=== PATIENT | female | born 1980 | race Caucasian/White ===

== ENCOUNTER 2016-08-03 00:44 | Emergency (ER) | payer OTHER ==
--- NOTE | 2016-08-03 00:53 | ER Document Report ---
ED Medical Screen (RME) - General Stated Complaint: ABDOMINAL PAIN Notes: 36-year-old female, chief complaint of left upper abdominal pain with an episode of vomiting tonight, history of gastritis and PUD, states it feels the same. Given 4 mg zofran by EMS. Denies blood in vomit, reports normal stools. Had EGD in the past. Physical Exam - Abdominal Tenderness: Tender - LUQ tender, difficult to exam based on patient cooperation
[2016-08-03] MEDS ORDERED: ONDANSETRON 4 MG TAB.RAPDIS PO ONE (00:57)
[2016-08-03] MEDS ORDERED: FAMOTIDINE 20 MG TABLET PO ONE (00:57)
[2016-08-03] MEDS ORDERED: SUCRALFATE 1 GM TABLET PO ONE (00:57)
[2016-08-03] MEDS ORDERED: MORPHINE SULFATE 10 MG/ML INJ IV ONE (02:32)
[2016-08-03] MEDS ORDERED: NORMAL SALINE 1000 ML 1,000 ML IV ONE ×2 (02:32→02:52)
[2016-08-03] MEDS ORDERED: PANTOPRAZOLE SODIUM 40 MG VIAL IV ONE (02:33)
--- NOTE | 2016-08-03 02:33 | ER Document Report ---
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 She denies hiatal hernia. She has had a cholecystectomy, . She states she has vomited once since being seen in triage by me. TRAVEL OUTSIDE OF THE [place] IN LAST 30 DAYS: No - Related Data Allergies/Adverse Reactions: Penicillins Allergy (Verified 08/03/16 01:00) Past Medical History - General Information source: Patient - Social History Smoking Status: Current Every Day Smoker Chew tobacco use (# tins/day): No Frequency of alcohol use: None Drug Abuse: Marijuana Lives with: Alone Family History: Reviewed & Not Pertinent Patient has suicidal ideation: No Patient has homicidal ideation: No Endocrine Medical History: Reports: Hx Hypothyroidism Renal/ Medical History: Denies: Hx Peritoneal Dialysis Past Surgical History: Reports: Hx Section, Hx Cholecystectomy - Immunizations Hx Diphtheria, Pertussis, Tetanus Vaccination: Yes Review of Systems - Review of Systems Constitutional: No symptoms reported EENT: No symptoms reported Cardiovascular: No symptoms reported Respiratory: No symptoms reported Gastrointestinal: See HPI Genitourinary: No symptoms reported Female Genitourinary: No symptoms reported Musculoskeletal: No symptoms reported Skin: No symptoms reported Hematologic/Lymphatic: No symptoms reported Neurological/Psychological: No symptoms reported Physical Exam - Vital signs Vitals: Temp Pulse Resp BP Pulse Ox 98.4 F 74 20 126/90 H 98 08/03/16 00:54 08/03/16 00:54 08/03/16 00:54 08/03/16 00:54 08/03/16 00:54 Interpretation: Normal - General General appearance: Alert, Anxious In distress: Moderate - Patient curled up on the bed in a ball, tearful - HEENT Head: Normocephalic, Atraumatic Eyes: Normal Conjunctiva: Normal Extraocular movements intact: Yes Eyelashes: Normal Pupils: PERRL Nasal: Normal Mouth/Lips: Normal Mucous membranes: Dry Pharynx: Normal Neck: Normal - Respiratory Respiratory status: No respiratory distress Chest status: Nontender Breath sounds: Normal Chest palpation: Normal - Cardiovascular Rhythm: Regular. No: Tachycardia Heart sounds: Normal auscultation, S1 appreciated, S2 appreciated Murmur: No - Abdominal Inspection: Normal Distension: No distension Bowel sounds: Normal Tenderness: Tender - There is very mild mid to left upper abdominal tenderness on examination, otherwise completely benign abdomen Organomegaly: No organomegaly - Back Back: Normal, Nontender. No: Tender - Extremities General upper extremity: Normal inspection, Nontender, Normal color, Normal ROM , Normal temperature General lower extremity: Normal inspection, Nontender, Normal color, Normal ROM , Normal temperature, Normal weight bearing. No: Anderson's sign - Neurological Neuro grossly intact: Yes Cognition: Normal Orientation: AAOx4 [place] Coma Scale Eye Opening: Spontaneous Kelly Coma Scale Verbal: Oriented [place] Coma Scale Motor: Obeys Commands Kelly Coma Scale Total: 15 Speech: Normal Motor strength normal: LUE, RUE, LLE, RLE Sensory: Normal - Psychological Associated symptoms: Anxious - Skin Skin Temperature: Warm Skin Moisture: Dry Skin Color: Normal Course - Re-evaluation Re-evalutation: Patient febrile over on the bed on initial exam, states she recently vomited, she has mild generalized tenderness of the abdomen which is nonspecific, no guarding. Patient not tachycardic on my exam. Patient was given pain medicine , IV fluids, Protonix patient on her history. Leukocytosis at 21,000 with no shift. BUN is slightly elevated but chemistries otherwise unremarkable. Urinalysis shows elevated specific gravity with a large amount of ketones consistent with dehydration. Urine tox screen is positive for marijuana, cocaine, opiates. Suspect leukocytosis from vomiting and dehydration. No evidence of acute abdomen on abdominal exam. Discussed with patient, she admits that for several days she has had episodes of vomiting. Again denies any blood in vomit or black stools. On reevaluations patient sitting up, appears much improved, she is asking for ice chips. I discussed with patient, patient states she only uses marijuana and does so infrequently. I informed her that she was positive for cocaine but she did not answer. I informed her that this can cause gastritis/esophagitis and symptoms similar to what she is having. I discussed gastritis, potential for GI bleed, treatments, recommendations, and return precautions. Patient states understanding, states that she will not touch cocaine and she states she'll return immediately if she develops any worsening symptoms. - Vital Signs Vital signs: Temp Pulse Resp BP Pulse Ox 98.1 F 74 18 102/62 95 08/03/16 05:08 08/03/16 05:08 08/03/16 05:08 08/03/16 05:08 08/03/16 05:08 - Laboratory Result Diagrams: 08/03/16 02:19 08/03/16 02:19 Laboratory results interpreted by me: 08/03/16 08/03/16 08/03/16 02:14 02:19 02:19 WBC 21.1 H Abs Neuts (Manual) 15.2 H BUN 26 H Urine Protein 100 H Urine Ketones 80 H Urine Blood LARGE H Discharge - Discharge Clinical Impression: Left upper quadrant pain Vomiting Qualifiers: Vomiting type: unspecified Vomiting Intractability: non-intractable Nausea presence: with nausea Qualified Code(s): R11.2 - Nausea with vomiting, unspecified Disposition: HOME, SELF-CARE Additional Instructions: You have been rehydrated, continue drink plenty of fluids, start with bland diet. Take the Carafate and omeprazole as directed daily, take Tums or Rolaids if needed additionally, take the Phenergan nausea medication if needed. Avoid cocaine or similar recreational drugs. Avoid NSAIDs, high levels of caffeine, alcohol, smoking. Follow-up with primary care. Return immediately if he develops any concerning or worsening symptoms such as vomiting blood, uncontrolled vomiting, severe abdominal pain, black stools, etc. Prescriptions: Omeprazole 40 mg PO DAILY #30 capsule. Promethazine HCl [Phenergan 25 mg Tablet] 1 - 2 tab PO Q6H PRN #20 tablet PRN Reason: Sucralfate [Carafate 1 gm Tablet] 1 gm PO QID #40 tablet
[2016-08-03 02:40] LABS: HEMATOCRIT 45.2 % (36.0-47.0); HEMOGLOBIN 15.4 g/dL (12.0-15.5); MEAN CORPUSCULAR HEMOGLOBIN 30.2 pg (27.0-33.4); MEAN CORPUSCULAR HGB CONC 34.1 g/dL (32.0-36.0); MEAN CORPUSCULAR VOLUME 89 fl (80-97); RED BLOOD COUNT 5.11 10^6/uL (3.72-5.28); RED CELL DISTRIBUTION WIDTH 13.8 % (11.5-14.0); WHITE BLOOD COUNT 21.1 10^3/uL (4.0-10.5)
[2016-08-03 02:47] LABS: APPEARANCE,URINE SLIGHTLY-CLOUDY; BILIRUBIN,URINE NEGATIVE (NEGATIVE); GLUCOSE, URINE NEGATIVE (NEGATIVE); KETONES,URINE 80 mg/dL (NEGATIVE); LEUKOCYTE ESTERASE,URINE NEGATIVE (NEGATIVE); NITRITE,URINE NEGATIVE (NEGATIVE); PROTEIN,URINE 100 mg/dL (NEGATIVE); URINE SPECIFIC GRAVITY 1.031; UROBILINOGEN,URINE NEGATIVE mg/dL (<2.0)
[2016-08-03 02:51] LABS: ALANINE AMINOTRANSFERASE 18 U/L (9-52); ALKALINE PHOSPHATASE 61 U/L (38-126); ANION GAP 19 (5-19); ASPARTATE AMINO TRANSFERASE 24 U/L (14-36); BILIRUBIN,DIRECT 0.4 mg/dL (0.0-0.4); BLOOD UREA NITROGEN 26 mg/dL (7-20); CALCIUM 9.8 mg/dL (8.4-10.2); CARBON DIOXIDE 22 mmol/L (22-30); CHLORIDE 100 mmol/L (98-107); CREATININE RESULT 0.85 mg/dL (0.52-1.25); GLUCOSE 101 mg/dL (75-110); LIPASE 102.6 U/L (23-300); POTASSIUM 3.8 mmol/L (3.6-5.0); SODIUM 140.9 mmol/L (137-145); TOTAL PROTEIN 7.9 g/dL (6.3-8.2)
[2016-08-03 02:59] LABS: URINE BARBITURATES SCREEN NEGATIVE; URINE METHADONE SCREEN NEGATIVE; URINE OPIATES LOW UNCONFIRMED POSITIVE; URINE PHENCYCLIDINE SCREEN NEGATIVE
[2016-08-03 03:06] LABS: BASOPHILS % (MANUAL) 1 % (0-2); EOSINOPHILS % (MANUAL) 0 % (0-6); LYMPHOCYTES % (MANUAL) 20 % (13-45); TOTAL CELLS COUNTED 100
[2016-08-03 03:11] LABS: OVALOCYTES SLIGHT; POIKILOCYTOSIS 1+; STOMATOCYTES 1+
[2016-08-03 05:10] VITALS: BP 102/62
--- NOTE | 2016-08-03 10:14 | EKG REPORT ---
SEVERITY:- ABNORMAL ECG - SINUS RHYTHM ABNORMAL Q SUGGESTS ANTERIOR INFARCT REPEAT EKG WITH PROPER V2 LEAD PLACEMENT TO CONFIRM : Confirmed by: Modesto Strickland MD 03-Aug-2016 10:14:10
== END 2016-08-03 05:00 | disposition home or self-care (01) ==
LOC: ER 00:44
DX: R10.12 Left upper quadrant pain (principal); R11.2 Nausea with vomiting, unspecified; F17.200 Nicotine dependence, unspecified, uncomplicated; E03.9 Hypothyroidism, unspecified; Z88.0 Allergy status to penicillin; Z90.49 Acquired absence of other specified parts of digestive tract
CPT/HCPCS: 93005; 99284; 96361; 96374; 96375; 36415; 83690; 85025; 81025; 80053; 81001; 80307; 93010; S0119; J2270; S0164; J7030

== ENCOUNTER 2016-08-05 08:38 | Emergency (ER) | payer OTHER ==
[2016-08-05] MEDS ORDERED: ONDANSETRON HCL INJ/PF 4 MG/2 ML SDV IV ONE (10:26)
--- NOTE | 2016-08-05 10:27 | ER Document Report ---
ED Medical Screen (RME) - General Chief Complaint: Upper Abdominal Pain Stated Complaint: ABDOMINAL PAIN Mode of Arrival: Wheelchair Information source: Patient Notes: Patient presents to the emergency department with severe epigastric abdominal pain. Patient actively vomiting. Reports history of gastritis. I have greeted and performed a rapid initial assessment of this patient. A comprehensive ED assessment and evaluation of the patient, analysis of test results and completion of the medical decision making process will be conducted by additional ED providers. TRAVEL OUTSIDE OF THE [place] IN LAST 30 DAYS: No - Related Data Allergies/Adverse Reactions: Penicillins Allergy (Verified 08/05/16 08:43) Past Medical History - Social History Chew tobacco use (# tins/day): Yes Drug Abuse: None Endocrine Medical History: Reports: Hx Hypothyroidism Renal/ Medical History: Denies: Hx Peritoneal Dialysis Past Surgical History: Reports: Hx Section, Hx Cholecystectomy - Immunizations Hx Diphtheria, Pertussis, Tetanus Vaccination: Yes Physical Exam - Vital signs Vitals: Temp Pulse Resp BP Pulse Ox 98.5 F 76 22 H 159/100 H 100 08/05/16 08:45 08/05/16 08:45 08/05/16 08:45 08/05/16 08:45 08/05/16 08:45 Course - Vital Signs Vital signs: Temp Pulse Resp BP Pulse Ox 98.5 F 76 22 H 159/100 H 100 08/05/16 08:45 08/05/16 08:45 08/05/16 08:45 08/05/16 08:45 08/05/16 08:45
[2016-08-05] MEDS ORDERED: PROMETHAZINE HCL INJ 25 MG/1 ML VIAL IV ONE ×2 (11:18→13:13)
[2016-08-05] MEDS ORDERED: FAMOTIDINE 20 MG TABLET PO ONE (11:18)
[2016-08-05] MEDS ORDERED: SUCRALFATE 1 GM TABLET PO ONE (11:18)
[2016-08-05] MEDS ORDERED: LIDOCAINE 2% VISCOUS SOLN 20 ML UDCUP PO ONE (11:18)
[2016-08-05 11:22] LABS: ABSOLUTE LYMPHOCYTES (AUTO) 2.2 10^3/uL (0.5-4.7); ABSOLUTE MONOCYTES (AUTO) 0.5 10^3/uL (0.1-1.4); ABSOLUTE NEUT (AUTO) 12.8 10^3/uL (1.7-8.2); BASOPHILS % (AUTO) 0.3 % (0-2); EOSINOPHILS % (AUTO) 0.1 % (0-6); HEMATOCRIT 42.1 % (36.0-47.0); HEMOGLOBIN 14.6 g/dL (12.0-15.5); HGB HCT DIFFERENCE 1.7; LYMPHOCYTES % (AUTO) 14.3 % (13-45); MEAN CORPUSCULAR HEMOGLOBIN 30.6 pg (27.0-33.4); MEAN CORPUSCULAR HGB CONC 34.7 g/dL (32.0-36.0); MEAN CORPUSCULAR VOLUME 88 fl (80-97); MONOCYTES % (AUTO) 3.3 % (3-13); RED BLOOD COUNT 4.78 10^6/uL (3.72-5.28); RED CELL DISTRIBUTION WIDTH 13.9 % (11.5-14.0); WHITE BLOOD COUNT 15.5 10^3/uL (4.0-10.5)
--- NOTE | 2016-08-05 11:24 | ER Document Report ---
ED GI/ - General Chief Complaint: Upper Abdominal Pain Stated Complaint: ABDOMINAL PAIN Mode of Arrival: Wheelchair Notes: Patient is a 36-year-old female presents emergency Department complaining of epigastric abdominal pain that started at 6 AM this morning. Described as burning/aching pain without radiation. Has been constant all morning with associated emesis. Patient states that she has a known past medical history significant for gastritis, peptic ulcer disease. She follows with a GI in [place] where she lives primarily. Patient states that she was seen here a couple of days ago and sent home with nausea medication and Protonix but she has not been able to fill the protonix. She states that she just hasn't had time to go the pharmacy. She admits to emesis without any evidence of hematemesis or hematochezia. Last bowel movement was yesterday and was normal. Past medical history as above as well as Graves' disease Past surgical history significant for and cholecystectomy Social history admits to 7.5 pack years, denies any alcohol use, social marijuana use. TRAVEL OUTSIDE OF THE [place] IN LAST 30 DAYS: No - Related Data Allergies/Adverse Reactions: Penicillins Allergy (Verified 08/05/16 08:43) Past Medical History - General Information source: Patient - Social History Smoking Status: Current Every Day Smoker Chew tobacco use (# tins/day): Yes Drug Abuse: None Family History: Reviewed & Not Pertinent Patient has suicidal ideation: No Patient has homicidal ideation: No Endocrine Medical History: Reports: Hx Hypothyroidism Renal/ Medical History: Denies: Hx Peritoneal Dialysis Past Surgical History: Reports: Hx Section, Hx Cholecystectomy - Immunizations Hx Diphtheria, Pertussis, Tetanus Vaccination: Yes Review of Systems - Review of Systems Constitutional: No symptoms reported Cardiovascular: No symptoms reported Respiratory: No symptoms reported Gastrointestinal: See HPI Genitourinary: No symptoms reported -: Yes All other systems reviewed and negative Physical Exam - Vital signs Vitals: Temp Pulse Resp BP Pulse Ox 98.5 F 76 22 H 159/100 H 100 08/05/16 08:45 08/05/16 08:45 08/05/16 08:45 08/05/16 08:45 08/05/16 08:45 Interpretation: Hypertensive. No: Tachycardic, Febrile - Notes Notes: PHYSICAL EXAM GENERAL: Alert, interacts well. HEAD: Normocephalic, atraumatic. EYES: Pupils equal, round, and reactive to light. Extraocular movements intact. ENT: Oral mucosa moist, tongue midline. NECK: Full range of motion. Supple. Trachea midline. LUNGS: Clear to auscultation bilaterally, no wheezes, rales, or rhonchi. No respiratory distress. HEART: Regular rate and rhythm. No murmurs, gallops, or rubs. ABDOMEN: Soft, nondistended, mild tenderness in epigastrium. No guarding, rebound, or rigidity.. Bowel sounds present in all 4 quadrants. Negative Wong 's, McBurney's point tenderness, psoas sign. EXTREMITIES: Moves all 4 extremities spontaneously. No edema, radial and dorsalis pedis pulses 2/4 bilaterally. No cyanosis. NEUROLOGICAL: Alert and oriented x4. Normal speech. PSYCH: Normal affect, normal mood. SKIN: Warm, dry, normal turgor. No rashes or lesions noted. Course - Re-evaluation Re-evalutation: 08/05/16 11:24 Patient is a 36-year-old female presents emergency Department complaining of emesis and epigastric pain. Exam is concerning for moderate epigastric tenderness. Lab findings show elevated white blood cell count at 15 which is down from the other day when it was 21,000. No evidence of abnormalities on her chemistry. I have consulted supervising physician Dr.James Palma and she will return visit. He has recommended a CT of the abdomen and pelvis with by mouth and IV contrast. 08/05/16 13:30 Patient states that she is not able to tolerate the by mouth contrast due to nausea. Patient is been medicated multiple times for this and is refusing to drink the by mouth contrast. Sent for CT the abdomen and pelvis with IV contrast. This study does not reveal any acute abdominal process. No evidence of abdominal perforation. Upon reassessment patient states that she feels a lot better than when she first got here and like to go home. At this time patient is hemodynamically stable, no acute distress and afebrile. Abdomen was no longer tender, patient is been tolerating by mouth in the department after multiple medications. 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 Returns to [place]. Per [facility] protocol and guidelines, this case was discussed with supervising physician Dr. Marcus Hunter prior to discharge - Vital Signs Vital signs: Temp Pulse Resp BP Pulse Ox 97.8 F 80 18 119/80 99 08/05/16 17:17 08/05/16 17:17 08/05/16 17:17 08/05/16 17:17 08/05/16 17:17 - Laboratory Result Diagrams: 08/05/16 11:10 08/05/16 11:10 Laboratory results interpreted by me: 08/05/16 08/05/16 11:10 11:10 WBC 15.5 H Seg Neutrophils % 82.0 H Absolute Neutrophils 12.8 H Carbon Dioxide 21 L Discharge - Discharge Clinical Impression: Epigastric pain Vomiting Qualifiers: Vomiting type: unspecified Vomiting Intractability: non-intractable Nausea presence: with nausea Qualified Code(s): R11.2 - Nausea with vomiting, unspecified Condition: Good Disposition: HOME, SELF-CARE Additional Instructions: Please follow-up with your 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 Please take your medications as prescribed. ABDOMINAL PAIN: There are many causes of abdominal pain. Pain can mean a serious problem requiring surgery (such as appendicitis). It can also be an innocent problem that goes away on its own (such as a viral infection). Often, time must pass to determine the cause of pain. The physician does not feel that hospitalization is necessary, at present. Things may change within the next 24 hours. Call the doctor or come back for re- examination if any problems occur, such as: (1) Pain that becomes more severe, steady, or becomes concentrated in one specific area. Also, pain that is more severe with movement or coughing. (2) Vomiting that persists or becomes more frequent. (3) Blood in the vomitus, urine, or bowel movements. Blood in the stool may have a tarry or black appearance. (4) Shaking chills or fever greater than 100 degrees F. (5) The abdomen becomes more distended or swollen. (6) Bowel movements cease. (7) Failure to improve as expected. TORADOL INJECTION: You have been given an injection of ketorolac tromethamine (Toradol). This is an excellent, safe drug for pain control. It also has potent antiinflammatory action. You should have significant pain relief within about one hour. Toradol is not addicting and is non-sedating. It does not interfere with driving or work. Call or return if you develop itching, hives, shortness of breath, or rash. PAIN MEDICATION INJECTION: You have received an injection of a pain medication. You should experience significant pain relief within 45 minutes. This drug is a narcotic - - it will impair your judgement, slow your reaction time and make you sleepy ( as well as relieve your pain). Narcotics also can cause nausea. You should not drive, work with machinery, or perform any task requiring mental alertness until all effects of the medication are gone -- six to eight hours. Do not take any alcohol, or sedatives, and do not take any other medication without checking with your physician. AN[place] MEDICATION: You have been given a medication to suppress nausea and vomiting. This type of medication can be given as a shot, pill, or suppository. It will usually last for many hours. Pills and shots usually last six to eight hours, suppositories last about 12 hours. For the typical illness, only one or two doses of the medication may be necessary. Mild lightheadedness may occur. This type of medicine can cause drowsiness. Do not drive or operate dangerous machinery while under its influence. Do not mix with alcohol. See your doctor at once if you have muscle spasms or tightness, or uncontrollable motions (particularly of the neck, mouth, or jaw). Persistent vomiting or severe lightheadedness should also be evaluated by the physician. FOLLOW-UP CARE: If you have been referred to a physician for follow-up care, call the physician s office for an appointment as you were instructed or within the next two days. If you experience worsening or a significant change in your symptoms, notify the physician immediately or return to the Emergency Department at any time for re-evaluation. Prescriptions: Nystatin/Dexameth/Diphen [Magic Mouthwash (O[facility] Formula) Susp] 5 ml PO QID #120 ml Forms: Elevated Blood Pressure
[2016-08-05 11:44] LABS: ALANINE AMINOTRANSFERASE 15 U/L (9-52); ALBUMIN 4.9 g/dL (3.5-5.0); ALKALINE PHOSPHATASE 61 U/L (38-126); ANION GAP 16 (5-19); ASPARTATE AMINO TRANSFERASE 16 U/L (14-36); BILIRUBIN,DIRECT 0.1 mg/dL (0.0-0.4); BILIRUBIN,TOTAL 0.9 mg/dL (0.2-1.3); BLOOD UREA NITROGEN 12 mg/dL (7-20); CARBON DIOXIDE 21 mmol/L (22-30); CHLORIDE 105 mmol/L (98-107); CREATININE RESULT 0.74 mg/dL (0.52-1.25); GLUCOSE 107 mg/dL (75-110); LIPASE 137.1 U/L (23-300); POTASSIUM 3.7 mmol/L (3.6-5.0); SODIUM 141.7 mmol/L (137-145); TOTAL PROTEIN 7.9 g/dL (6.3-8.2)
[2016-08-05] MEDS: NORMAL SALINE 1000 ML 1,000 ML IV PRN ×2 (12:02→13:38)
[2016-08-05] MEDS ORDERED: MORPHINE SULFATE 10 MG/ML INJ IV ONE ×2 (12:31→13:13)
[2016-08-05] MEDS ORDERED: HYDROMORPHONE HCL INJ/PF 2 MG/ML AMPULE IV ONE (14:37)
[2016-08-05] MEDS ORDERED: PROCHLORPERAZINE EDISYLATE INJ 10 MG/2 ML VIAL IV ONE (14:59)
[2016-08-05 17:17] VITALS: BP 119/80
== END 2016-08-05 17:17 | disposition home or self-care (01) ==
LOC: ER 08:38
DX: R10.13 Epigastric pain (principal); R11.2 Nausea with vomiting, unspecified; F17.210 Nicotine dependence, cigarettes, uncomplicated; E03.9 Hypothyroidism, unspecified; Z88.0 Allergy status to penicillin; Z90.49 Acquired absence of other specified parts of digestive tract
CPT/HCPCS: 96376; 99284; 96361; 96374; 96375; 36415; 83690; 85025; 80053; 74177; J3490; J2270; J1170; J0780; J2550; J2405; J7030